=== PATIENT | male | born 1960 | race Caucasian/White ===

== ENCOUNTER 2018-01-20 09:29 | Emergency (ER) | payer SELFPAY ==
[2018-01-20] MEDS ORDERED: IBUPROFEN 600 MG TABLET PO ONE (10:15)
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
--- NOTE | 2018-01-24 08:17 | RADIOLOGY REPORT ---
EXAM: LEFT FIFTH DIGIT HISTORY: INJURY. TECHNIQUE: Three views of the left fifth digit were performed. FINDINGS: No evidence of fracture or dislocation. No lytic or blastic lesion. No erosive change. IMPRESSION: NEGATIVE LEFT FIFTH DIGIT EXAMINATION. JOB NUMBER: [id number] MTDD
== END 2018-01-20 11:25 | disposition home or self-care (01) ==
LOC: ER 09:29
DX: S09.90XA Unspecified injury of head, initial encounter (principal); R51 Headache; M79.645 Pain in left finger(s); M25.551 Pain in right hip; M54.5 Low back pain; Y04.2XXA Assault by strike against or bumped into by another person, initial encounter
CPT/HCPCS: 73140; 99282; 99283

== ENCOUNTER 2019-01-19 15:13 | Emergency (ER) | payer OTHER ==
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
[2019-01-19] MEDS: ACETAMINOPHEN 325 MG TAB PO ONE (15:33)
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
== END 2019-01-19 16:20 | disposition home or self-care (01) ==
LOC: ER 15:13
DX: S50.01XA Contusion of right elbow, initial encounter (principal); I10 Essential (primary) hypertension; X50.0XXA Overexertion from strenuous movement or load, initial encounter; Y93.89 Activity, other specified; Y92.219 Unspecified school as the place of occurrence of the external cause; Y99.0 Civilian activity done for income or pay
CPT/HCPCS: 99283